=== PATIENT | male | born 2000 | race Caucasian/White ===

== ENCOUNTER 2022-09-10 17:38 | Emergency (ER) | payer OTHER ==
[~2022-09-10] VITALS: Ht 175.3 cm; Wt 77.1 kg
[2022-09-10 17:54] VITALS: BP 145/80; PULSE 70; RESP 17; TEMP 97.4; O2SAT 99
--- NOTE | 2022-09-10 18:10 | NUR ---
PT AMBULATED TO BED 12
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
--- NOTE | 2022-09-10 19:09 | NUR ---
pt brought back via w/c
[2022-09-10 19:18] VITALS: O2SAT 99
--- NOTE | 2022-09-10 19:26 | NUR ---
REPORT GIVEN TO EDEN RN. TRANSFER OF CARE AT THIS TIME
--- NOTE | 2022-09-10 20:28 | NUR ---
Patient discharged. Written and verbal after care instructions given and explained. Patient verbalized understanding. Ambulatory with steady gait. ID band removed. All questions addressed prior to discharge. Advised to follow up with PMD.
== END 2022-09-10 20:28 | disposition home or self-care (01) ==
LOC: EDBD 17:38 → MED 17:38
DX: S00.81XA Abrasion of other part of head, initial encounter (principal); R07.89 Other chest pain; M54.2 Cervicalgia; V89.2XXA Person injured in unspecified motor-vehicle accident, traffic, initial encounter; Y93.89 Activity, other specified; Y92.410 Unspecified street and highway as the place of occurrence of the external cause; Y99.8 Other external cause status
CPT/HCPCS: 71046; 72050; 99284